=== PATIENT | female | born 1970 | race Caucasian/White ===

== ENCOUNTER → 2017-05-03 | Outpatient (CLI) | payer BC ==
--- NOTE | 2017-05-03 14:43 | DIAGNOSTIC IMAGING REPORT ---
RENAL ULTRASOUND HISTORY: R31.29 Microscopic [id number] COMPARISON: Renal ultrasound 09/28/2015. FINDINGS: Right kidney: 10.6 cm. No hydronephrosis. Normal corticomedullary differentiation and cortical thickness. Left kidney: 11 cm. No hydronephrosis. Normal corticomedullary differentiation and cortical thickness. Bladder: No bladder wall thickening. The bilateral ureteral jets were identified. Post residual was 75 cc. Hepatic steatosis. IMPRESSION: 1. Normal kidneys. No hydronephrosis. 2. Small post void residual of 75 cc. Electronically signed by: Dickson Prado M.D. 05/03/2017 2:42 PM Dictated Date/Time: 05/03/2017 2:41 PM
== END | disposition home or self-care (01) ==
LOC: C.ULTR 14:04
PROVIDERS: ATTEND Internal Medicine Nephrology
DX: R31.29 Other microscopic hematuria (principal)